=== PATIENT | male | born 1955 | race Caucasian/White ===

== ENCOUNTER → 2017-10-28 08:28 | Day surgery (SDC) | payer BC ==
[~2017-10-28 08:28] MED LIST: Flumazenil* 0.1 MG/ML 5 ML MDV ONE; Lidocaine 1% INJ* 10 MG/ML 30 ML SDV ONE; Midazolam* 1 MG/ML 5 ML VIAL (5 MG) ONE; Naloxone* 0.4 MG/ML 1 ML VIAL ONE; ceFAZolin 1 GM VIAL(*) 2 GM in NS 0.9% 50 ML* 50 ML IVPB ONE; fentaNYL* 50 MCG/ML 2 ML VIAL (100 MCG VIAL) ONE
[2017-10-28 09:53] LABS: ABS Basophils 0.1 10^3/ul (0-0.2); ABS Eosinophils 0.1 10^3/ul (0-0.6); ABS Lymphocytes 1.1 10^3/ul (1.0-4.8); ABS Monocytes 0.8 10^3/ul (0-0.8); ABS Neutrophils 6.9 10^3/ul (1.5-7.7); ABS Nucleated RBC 0 10^3/ul; Eosinophil % 0.7 % (0-6); Hematocrit 42 % (42-52); Hemoglobin 14.6 g/dl (14.0-18.0); Lymphocyte % 12.6 % (25-47); Mean Corpuscular HGB Conc 35 g/dl (31-36); Mean Corpuscular Hemoglobin 33 pg (27-31); Mean Corpuscular Volume 97 fL (80-94); Mean Platelet Volume 7.9 um3 (7.4-10.4); Nucleated Red Blood Cells % 0; Platelet Count 229 10^3/ul (150-450); Red Blood Count 4.39 10^6/ul (4.0-5.4); Red Cell Distribution Width 14 % (10.5-15)
[2017-10-28 10:01] LABS: INR 2.97 (0.77-1.02)
--- NOTE | 2017-10-28 14:23 | OP ---
CC: Cata Valenzuela MD OPERATIVE NOTE: DATE OF PROCEDURE: 10/28/17 DATE OF : 55 SURGEON: Rosa Hall MD ANESTHESIA: MAC. PRE-OP DIAGNOSES: Complete heart block and current pacemaker generator replacement. POST-OP DIAGNOSES: Complete heart block and current pacemaker generator replacement. OPERATIVE PROCEDURE: Pacemaker generator change. COMPLICATIONS: None. The indications, risks and benefits were discussed in depth with the patient and he was amenable to p roceeding. DESCRIPTION OF PROCEDURE: The existing device is in the left subclavian fossa. This area was prepped and draped in the usual sterile fashion. A time-out procedure was called. Throughout the procedure , the patient received a total of 5 mg of Versed and 25 mcg of fentanyl for sedation. The patient al so has received approximately 25 cc of 1% lidocaine for local anesthesia. Following local anesthesia, using a 10-blade knife, an incision was made in the mid portion over the existing pacemaker and using Bovie and blunt dissection, the incision was extended to the level of th e device. A small toma was made in the fascial covering with a Bovie extended medially with small Me tzenbaum scissors, laterally there were leads, and so, we did not extend the fascial incision lateral ly. The device was explanted. The suture ligated. The pocket was examined, it was unremarkable. The atrial lead was removed from the device. Pacing and sensing thresholds were good. Following thi s, the ventricular lead was removed from the device with a small 4-second pause. Pacing and sensing thresholds were checked and found to be good. The leads were then attached to the new generator, the atrial lead first, the ventricular lead second. There was a 6-second pause placing the ventricular lead back in the new device. The pocket was then copiously irrigated. The new device was placed in the pocket. Pacing and sensing thresholds were checked again in the pocket and incision was closed. There was 1 interrupted suture medially followed by running 2-0 and running 4-0 followed by kei and an external dressing. FINDINGS: The explanted device is a Medtronic model VEDR01 Versa, serial [id number]. The newly impl anted device is a Medtronic MRI compatible device, A2DR01, serial number [id number]. Currently progr ammed in DDDR mode with a lower rate of 60 beats a minute, paced AV 170 msec, sensed AV 150 msec, upp er tracking rate of 160 beats a minute. The existing atrial lead is a Medtronic model 117549, serial number [id number] with P wave sensed at 4.9 millivolts and atrial lead impedance of 335 ohms and atrial pacing threshold of 0.4 volts at 0.5 msec. A ventricular lead existing is model 406450, serial number [id number] with no underlying R wave. The ventricular lead impedance is 386 ohms and the ventricular pacing threshold is 0.4 volts at 0.5 msec . The patient was hemodynamically stable throughout the procedure and transferred to the recovery room and in the recovery room, there were no complications. [id number]/[facility] #: [id number]
== END | disposition home or self-care (01) ==
LOC: CHICATH 08:28
PROVIDERS: ATTEND Specialist
DX: I44.2 Atrioventricular block, complete (principal); I49.5 Sick sinus syndrome; Z45.010 Encounter for checking and testing of cardiac pacemaker pulse generator [battery]; I10 Essential (primary) hypertension; I48.91 Unspecified atrial fibrillation; I08.1 Rheumatic disorders of both mitral and tricuspid valves
CPT/HCPCS: 33228; 36415; 80053; 85025; 85610; 85730; 88300; 93005; C1785; J0690; J2250; J2310; J3010